=== PATIENT | female | born 1990 | race Caucasian/White ===

== ENCOUNTER 2016-12-11 03:08 | Emergency (ER) | payer OTHER ==
[~2016-12-11] VITALS: Ht 154.9 cm; Wt 52.2 kg
[~2016-12-11 03:08] MED LIST: FIORICET 325 MG1 TAB PO
--- NOTE | 2016-12-11 03:15 | ED GI/GU/ABDOMINAL COMPLAINT ---
History of Present Illness General Chief Complaint: General Adult Stated Complaint: " BELIEVE I HAVE FOOD POISONING, +N+V+D" Source: patient Exam Limitations: no limitations Vital Signs & Intake/Output Vital Signs & Intake/Output Vital Signs Date Time Temp Pulse Resp B/P Pulse O2 O2 Flow FiO2 Ox Delivery Rate 12/11 0341 Room Air 12/117 97.6 104 18 122/70 96 Room Air Allergies Coded Allergies: NO KNOWN ALLERGIES (10/22/14) Reconcile Medications Acetaminophen/Butalbital/Caf (Fioricet 325 MG-50 MG-40 MG) 1 TAB TAB 1 TAB PO Q4P PRN HEADACHE do not exceed 6 tablet(s) in 24 hours Ciprofloxacin HCl (Cipro) 500 MG TABLET 1 TAB PO BID diarrhea/food poisoning Diphenoxylate HCl/Atropine (Lomotil 2.5-0.025 MG Tablet) 2.5 MG-0.025 MG TABLET 1 TAB PO 4 TIMES/DAY PRN diarrhea twenty...[id number] Metronidazole (Flagyl) 500 MG TABLET 1 TAB PO TID food poisoning Ondansetron (Zofran Odt) 4 MG TAB.RAPDIS 1 TAB SL TID PRN nausea/vomiting Triage Nurses Notes Reviewed? yes ? n Is pt currently ? No Onset: Abrupt Duration: hour(s): Timing: recent history Quality/Severity: burning, cramping Location: epigastric, generalized abdomen Radiation: no radiation Activities at Onset: eating Prior Abdominal Problems: none Modifying Factors: Worsens With: defecating, vomiting. Associated Symptoms: diarrhea, nausea/vomiting HPI: 26 yo woman presents with several hours of nausea, vomiting, diarrhea. She notes that she ate chicken wings tonight. Shortly thereafter, she developed acute nausea, vomiting, diarrhea for the past several hours with crampy abdominal discomfort. She notes not fever, chills, dyspnea. She is otherwise well. Past History Travel History Traveled to [place] past 21 day No Medical History Any Pertinent Medical History? see below for history Surgical History Surgical History: none Psychosocial History What is your primary language Serbian Family History Hx Contributory? No Review of Systems Review of Systems Constitutional: Reports: no symptoms. EENTM: Reports: no symptoms. Respiratory: Reports: no symptoms. Cardiovascular: Reports: no symptoms. GI: Reports: no symptoms. Genitourinary: Reports: no symptoms. Musculoskeletal: Reports: no symptoms. Skin: Reports: no symptoms. Neurological/Psychological: Reports: no symptoms. Hematologic/Endocrine: Reports: no symptoms. Immunologic/Allergic: Reports: no symptoms. All Other Systems: Reviewed and Negative Physical Exam Physical Exam General Appearance: well developed/nourished, mild distress Head: atraumatic, normal appearance Eyes: Bilateral: normal appearance. Ears, Nose, Throat, Mouth: hearing grossly normal, dental injury, moist mucous membrane Neck: normal inspection, supple, full range of motion Respiratory: normal breath sounds, chest non-tender, no respiratory distress, quiet respiration, lungs clear Cardiovascular: regular rate/rhythm Gastrointestinal: normal bowel sounds, soft, mild mid epigastric tenderness to palpation, no rlq tenderness to palpation. Back: normal inspection Extremities: normal range of motion Neurologic/Psych: no motor/sensory deficits, awake, alert, oriented x 3 Core Measures ACS in differential dx? No Severe Sepsis Present: No Septic Shock Present: No Progress Differential Diagnosis: food poisoning, viral gastro, bacterial enteritis Plan of Care: Orders Procedure Date/time Status LIPASE 12/11 314 Complete HEPATIC FUNCTION PANEL 12/11 314 Complete HUMAN BETA HCG SCREEN 12/11 314 Complete CBC WITHOUT DIFFERENTIAL 12/11 314 Complete BASIC METABOLIC PANEL 12/11 314 Complete AMYLASE 12/11 314 Complete Current Medications Sig/Amado Start time Last Medication Dose Stop Time Status Admin Ceftriaxone Sodium 1,000 MG ONCE ONE 12/11 444 UNVr (Rocephin) 12/11 445 Diphenoxylate HCl/ 5 MG ONCE ONE 12/11 444 UNVr Atropine 12/11 445 (Lomotil) Metronidazole 500 MG ONCE ONE 12/11 444 UNVr (Flagyl) 12/11 445 Laboratory Tests 12/11/16 0329: Anion Gap 12, Estimated GFR > 60, BUN/Creatinine Ratio 30.0 H, Glucose 126 H, Calcium 9.9, Total Bilirubin 2.2 H, Direct Bilirubin 0.4, AST 28, ALT 25, Alkaline Phosphatase 73, Total Protein 7.8, Albumin 4.6, Amylase 75, Lipase 123, Total Beta HCG NEGATIVE, CBC w Diff MAN DIFF ORDERED, RBC 5.37, MCV 89.9, MCH 30.1, RDW 13.2, MPV 7.9, Gran % 96.6 H, Lymphocytes % 1.9 L, Monocytes % 1.1 L, Eosinophils % 0.4, Basophils % 0 L, Absolute Granulocytes 19.6 H, Absolute Lymphocytes 0.4 L, Absolute Monocytes 0.2, Absolute Eosinophils 0.1, Absolute Basophils 0, Platelet Estimate ADEQUATE, Normochromic RBCs VERIFIED, Poikilocytosis RARE, Stomatocytes RARE, PUBS MCHC 33.5 Initial ED EKG: none Departure Departure Disposition: HOME OR SELF CARE Condition: Stable Clinical Impression Primary Impression: Food poisoning Referrals: CLAY RODRIGUEZ (PCP/Family) Departure Forms: Customer Survey General Discharge Information Prescriptions: Current Visit Scripts Ciprofloxacin HCl (Cipro) 1 TAB PO BID #14 TAB Metronidazole (Flagyl) 1 TAB PO TID #21 TAB Diphenoxylate HCl/Atropine (Lomotil 2.5-0.025 MG Tablet) 1 TAB PO 4 TIMES/DAY PRN diarrhea #20 TAB twenty...[id number] Ondansetron (Zofran Odt) 1 TAB SL TID PRN nausea/vomiting #10 TAB Ref 1 Comments 12/11/16, 4:37am... pt feeling better after iv fluids... given elevated wbc count , will treat empiricially with abx to cover bowel micehla... discussed at length with patient. close follow up encouraged.
[2016-12-11 03:35] LABS: ABSOLUTE BASOPHIL COUNT 0 /CUMM (0.0-0.2); ABSOLUTE EOSINOPHIL COUNT 0.1 /CUMM (0.0-0.7); ABSOLUTE GRANULOCYTE CT 19.6 /CUMM (1.4-6.5); ABSOLUTE LYMPH COUNT 0.4 /CUMM (1.2-3.4); ABSOLUTE MONOCYTE COUNT 0.2 /CUMM (0.10-0.60); BASOPHIL % 0 % (0.0-2.0); EOSINOPHIL % 0.4 % (0-5); GRANULOCYTE % 96.6 % (42.2-75.2); HEMATOCRIT 48.3 % (37-47); MEAN CORPUSCULAR HGB 30.1 PG (27.0-31.0); MEAN CORPUSCULAR HGB CONC 33.5 G/DL (33.0-37.0); MEAN CORPUSCULAR VOLUME 89.9 FL (81.0-99.0); MEAN PLATELET VOLUME 7.9 FL (7.4-10.4); PLATELET COUNT 284 /CUMM (130-400); RBC DISTRIBUTION WIDTH 13.2 % (11.5-14.5); RED BLOOD CELL CT 5.37 /CUMM (4.20-5.40); WHITE BLOOD CELL COUNT 20.3 /CUMM (4.8-10.8)
[2016-12-11] MEDS ORDERED: ZOFRAN ODT4 M1 SL (04:36)
[2016-12-11] MEDS ORDERED: FLAGYL500 MG PO (04:36)
[2016-12-11] MEDS ORDERED: CIPRO500 M1 PO (04:36)
[2016-12-11] MEDS ORDERED: LOMOTIL 2.5-0.1 EACH PO (04:36)
[2016-12-11 04:50] VITALS: BP 118/64
== END 2016-12-11 04:51 ==
LOC: ERH 03:08
PROVIDERS: Pediatrics
DX: A05.9 Bacterial foodborne intoxication, unspecified (principal)
CPT/HCPCS: 96361; 96374; 96375; J0696; J2405